=== PATIENT | male | born 1960 | race Caucasian/White ===

== ENCOUNTER 2017-12-10 09:35 | Emergency (ER) | payer OTHER ==
[~2017-12-10] VITALS: Ht 175.3 cm; Wt 138.3 kg
[~2017-12-10 09:35] MED LIST: ASPIR 8181 MG PO; BACTRIM DS TAB1 EACH PO; COUMADIN 2 MG TA2 M1 PO; DULCOLAX5 MG PO; ENOXAPARIN120 MG/0.1 SUBQ; FERREX 150 PLU1 EAC1 PO; IRON325 PO; LEVAQUIN 500 M500 M7 PO; LISINOPRIL-HCT1 EACH PO; MIRALAX17 GM PO; NORCO 5-325 TA1 EACH PO; ZESTORETIC 10-1 EACH PO
[2017-12-10] MEDS ORDERED: ANTIVERT25 MG PO (09:43)
[2017-12-10] MEDS ORDERED: COUMADIN 3 MG TA3 M1 PO ×2 (09:43)
[2017-12-10] MEDS ORDERED: COZAAR 25 MG TA25 M1 PO (09:43)
[2017-12-10 10:41] LABS: HEMATOCRIT 43.5 % (42.0-52.0); HEMOGLOBIN 14.1 gm/dL (14.0-18.0); MCH 28.1 pg (26.0-34.0); MCHC 32.6 g/dL (28.0-37.0); MCV 86.3 fL (80.0-100.0); MPV 7.5 fl. (7.2-11.1); NUCLEATED RBCS 0 /100WBC; PLATELET COUNT* 208 thou/uL (150-400); RBC 5.03 mil/uL (4.50-6.00); RDW-CV 15.7 % (10.5-14.5); WBC 17.8 thou/uL (4.0-11.0)
[2017-12-10 10:49] LABS: CALCIUM 9.1 mg/dL (8.5-10.1); CREATININE 1.1 mg/dL (0.6-1.3); INR 1.5; POTASSIUM 3.6 mmol/L (3.5-5.1); PROTIME 14.5 Seconds (9.20-11.50)
[2017-12-10] MEDS ORDERED: KEFLEX500 M1 PO (11:34)
[2017-12-10 11:54] VITALS: BP 155/82
[2017-12-10 12:50] LABS: ABSOLUTE LYMPHOCYTES 1.2 thou/uL (0.8-5.3); ABSOLUTE MONOCYTES 0.9 thou/uL (0.0-1.2); ABSOLUTE NEUTROPHILS 15.7 thou/uL (1.6-8.1); PLATELET ESTIMATE ADEQUATE
[2017-12-10 12:51] LABS: ANISOCYTOSIS 1+; POIKILOCYTOSIS 1+
== END 2017-12-10 11:55 | disposition home or self-care (01) ==
LOC: M.ERS 09:35
PROVIDERS: Emergency Medicine Emergency Medical Services
DX: L03.116 Cellulitis of left lower limb (principal); R50.9 Fever, unspecified; I10 Essential (primary) hypertension; J45.909 Unspecified asthma, uncomplicated

== ENCOUNTER 2017-12-12 07:03 | Inpatient (IN) | payer OTHER ==
[~2017-12-12] VITALS: Ht 175.3 cm; Wt 138.3 kg
[~2017-12-12 07:03] MED LIST changes: +ANTIVERT25 MG PO; +COUMADIN 3 MG TA3 M1 PO; +COZAAR 25 MG TA25 M1 PO; +KEFLEX500 M1 PO
[2017-12-12 07:12] VITALS: BP 136/100
[2017-12-12 07:39] LABS: ABSOLUTE LYMPHOCYTES 1.3 thou/uL (0.8-5.3); ABSOLUTE MONOCYTES 1.1 thou/uL (0.0-1.2); ABSOLUTE NEUTROPHILS 9.6 thou/uL (1.6-8.1); BASOPHILS 0.1 %; EOSINOPHILS 0.4 %; HEMATOCRIT 39.1 % (42.0-52.0); LYMPHOCYTES 10.6 %; MCH 28.3 pg (26.0-34.0); MCHC 33.2 g/dL (28.0-37.0); MCV 85.3 fL (80.0-100.0); MPV 7.7 fl. (7.2-11.1); NUCLEATED RBCS 0 /100WBC; PLATELET COUNT* 255 thou/uL (150-400); POLYS 79.9 %; RBC 4.59 mil/uL (4.50-6.00); RDW-CV 15.6 % (10.5-14.5)
[2017-12-12 07:48] LABS: POTASSIUM 3.6 mmol/L (3.5-5.1)
[2017-12-12 07:49] LABS: PROTIME 23.2 Seconds (9.20-11.50)
[2017-12-12 07:51] LABS: INR 2.4
[2017-12-12 07:52] LABS: ALBUMIN 2.9 g/dL (3.4-5.0); TOTAL BILIRUBIN 0.5 mg/dL (<0.1-1.0); TOTAL PROTEIN 7.9 g/dL (6.4-8.2)
[2017-12-12 08:44] VITALS: BP 130/76
[2017-12-12 08:46] LABS: URINE BILIRUBIN NEGATIVE (Negative); URINE BLOOD NEGATIVE (Negative); URINE CLARITY CLEAR; URINE COLOR YELLOW; URINE GLUCOSE-RANDOM NEGATIVE (Negative); URINE KETONES NEGATIVE (Negative); URINE LEUKOCYTES-REFLEX NEGATIVE (Negative); URINE NITRITE-REFLEX NEGATIVE (Negative); URINE PROTEIN 1+ (Negative)
[2017-12-12 16:06] VITALS: BP 121/71
--- NOTE | 2017-12-12 18:43 | NUR ---
ADMITTED TO 118 THIS AM, COMPLIANT WITH MEDS AND CARES, NO DISTRESS NOTED, LLE WITH DIFFUSE ERYTHEMA/EDEMA FROM KNEE TO ANKLE, TENDER TO PALPATION, A/O, PAIN MANAGED WELL WITH MEDICATION, FAMILY AT BEDSIDE, CARE PLAN REVIEWED, DENIES QUESTIONS AT THIS TIME, CALL LIGHT IN REACH.
[2017-12-13] VITALS: BP 105/74
[2017-12-13 04:04] LABS: HEMATOCRIT 37.3 % (42.0-52.0); HEMOGLOBIN 12.1 gm/dL (14.0-18.0); MCH 28.4 pg (26.0-34.0); MCHC 32.4 g/dL (28.0-37.0); MCV 87.5 fL (80.0-100.0); RBC 4.26 mil/uL (4.50-6.00); RDW-CV 15.7 % (10.5-14.5); WBC 9.9 thou/uL (4.0-11.0)
[2017-12-13 04:07] LABS: INR 2.7; PROTIME 26.2 Seconds (9.20-11.50)
[2017-12-13 04:10] LABS: CALCIUM 8.2 mg/dL (8.5-10.1); MAGNESIUM 2.2 mg/dL (1.8-2.4); POTASSIUM 3.8 mmol/L (3.5-5.1)
--- NOTE | 2017-12-13 05:23 | NUR ---
PT RECEIVING IV PAIN MED OVERNIGHT WITH GOOD RESULT, HAS BEEN ABLE TO SLEEP FAIRLY WELL OVERNIGHT. LLE ELEVATED ON PILLOWS. LAC SL, ABX GIVEN ORDERED. USING URINAL TO VOID WITHOUT DIFFICULTY. AM LAB DRAWN. LLE REMAINS RED, EDEMATOUS, WARM-PHOTOS TAKEN AND PLACED ON CHART. ABLE TO USE CALL LITE AND MAKE NEEDS KNOWN.
[2017-12-13 08:00] VITALS: BP 118/66
[2017-12-13 16:00] VITALS: BP 122/70
[2017-12-14 00:05] VITALS: BP 106/39
[2017-12-14 04:30] LABS: PROTIME 29.1 Seconds (9.20-11.50)
--- NOTE | 2017-12-14 05:16 | NUR ---
PT SLEPT ON AND OFF OVERNIGHT. PAIN IN LLE IMPROVED FROM LAST NIGHT, PT ABLE TO MOVE IT MUCH BETTER. PO PAIN MED GIVEN X2 THIS SHIFT WITH GOOD RELIEF. LAC SL, ABX GIVEN ORDERED. VOIDING PER URINAL. PT MOVES INDEP IN BED. AM LABS DRAWN, TO HAVE VANC TROUGH THIS AFTERNOON. ABLE TO USE CALL LITE AND MAKE NEEDS KNOWN.
[2017-12-14 07:45] VITALS: BP 118/68
[2017-12-14 16:46] VITALS: BP 105/54
--- NOTE | 2017-12-14 17:01 | NUR ---
PT.ALERT AND ORIENTED. LIVES WITH . BOTH WORK OUTSIDE OF THE HOME. HE IS NORMALLY INDEPENDENT WITH EVERYTHING. NO USE OF DME. HE WILL HAVE [employer] PAPERS FOR TO SIGN. HE WILL EITHER FAX TO CM OR HAVE BRING THEM BY. HE WILL NOT HAVE ANY DISCHARGE NEEDS.
--- NOTE | 2017-12-14 18:15 | NUR ---
ALERT AND ORIENTED X4. UP AD MARYAN IN ROOM. IV IS PATENT AND INFUSING ANTIBIOTIC AT THIS TIME. PAIN BEING MANAGED WITH PO PAIN MEDICATION. DENIES NAUSEA. LLE ELEVATED ON PILLOW THROUGHOUT SHIFT. TOLERATING DIET. VSS ON ROOM AIR. HOURLY ROUNDS HAVE BEEN MAINTAINED THROUGHOUT SHIFT. CALL LIGHT IS WITHIN REACH. NURSING WILL CONTINUE TO MONITOR.
[2017-12-14 20:00] VITALS: BP 107/48
[2017-12-15 05:10] LABS: INR 3.3; PROTIME 31.4 Seconds (9.20-11.50)
--- NOTE | 2017-12-15 07:09 | NUR ---
PATIENT REMAINS ALERT AND ORIENTED X4 THROUGHOUT SHIFT. VITAL SIGNS STABLE ON ROOM AIR. IV PATENT IN THE LEFT AC SALINE LOCKED. DENIES PAIN OR NAUSEA. REPOSITIONING SELF IN BED. TRANSFERS AD MARYAN TO THE RESTOOM. USING URINALS AT TIMES. MEDICATIONS GIVEN PER ORDERS. RESTING COMFORTABLY THROUGHOUT NIGHT. TOLERATING DIET. HOURLY ROUNDING COMPLETE. CALL LIGHT WITHIN REACH. NURSING WILL CONTINUE TO MONITOR.
[2017-12-15 08:00] VITALS: BP 139/55
--- NOTE | 2017-12-15 09:56 | NUR ---
RN REVIEWED AND AGREES WITH STUDENTS CHARTING.
[2017-12-15 10:20] VITALS: BP 139/55
[2017-12-15] MEDS ORDERED: NORCO 5-325 TA1 EACH PO (10:28)
[2017-12-15] MEDS ORDERED: MINOCIN100 MG PO (10:34)
[2017-12-15 12:57] VITALS: BP 139/55
--- NOTE | 2017-12-15 14:08 | NUR ---
Nutrition: Pt admitted for sepsis 2/2 cellulitis. Wt hx: 275# in 2016, now 305#. PMHx: morbid OBE, LLE venous insuffciency. +BM yday. Labs: alb 2.9, BG 115. RX: ABX, warfarin. Tolerating Regular diet. Pt assessed for BMI >40. Protein stores are low. Continue encouraging good HBV protein at meal times. Consider Mild risk at this time. Will follow up per protocol.
--- NOTE | 2017-12-15 15:16 | NUR ---
PATIENT LEFT UNIT AT 1200. ALERT AND ORIENTED X4. UP AD MARYAN IN ROOM. IV DC'D. PAIN MANAGED WITH PO PAIN MEDICATION. DENIES NAUSEA. TOLERATING DIET. LEFT LEG ELEVATED ON PILLOW THROUGHOUT SHIFT. ROLANDO HOSE IN PLACE ON LEFT LEG. ALL PERSONAL ITEMS LEFT WITH PATIENT. DISCHARGE INSTRUCTIONS, PRESCRIPTIONS, AND NEW MEDICATION INFORMATION SENT WITH PATIENT. VSS ON ROOM AIR. HOURLY ROUNDS HAVE BEEN MAINTAINED THROUGHOUT SHIFT. LEFT WITH FRIEND VIA CAR.
== END 2017-12-15 12:00 | disposition home or self-care (01) | DRG 872 ==
LOC: M.ERS 07:03 → M.TBA-ER 08:15 → M.ORTHSURG 08:15
PROVIDERS: Emergency Medicine Emergency Medical Services; ADMIT Internal Medicine
DX: A41.9 Sepsis, unspecified organism (principal); L03.116 Cellulitis of left lower limb; Z68.42 Body mass index [BMI] 45.0-49.9, adult; D68.69 Other thrombophilia; I87.2 Venous insufficiency (chronic) (peripheral); I10 Essential (primary) hypertension; J45.909 Unspecified asthma, uncomplicated; E66.01 Morbid (severe) obesity due to excess calories; Z87.891 Personal history of nicotine dependence; Z95.2 Presence of prosthetic heart valve; Z79.01 Long term (current) use of anticoagulants; Z79.899 Other long term (current) drug therapy

== ENCOUNTER → 2018-02-24 | Outpatient (CLI) | payer OTHER ==
[~2018-02-24] MED LIST changes: +MINOCIN100 MG PO
--- NOTE | 2018-02-24 16:02 | 2DMMODE ---
[place] [address] 2 D/M-MODE ECHOCARDIOGRAM Name: CHAD SCHMID Room: [facility]#: [id number] Admission: 02/24/18 Attend Phys: Harvey Elizabeth, Discharge: Date of : 62 Date of Service: 02/24/18 1602 Report #: [id number] THIS REPORT FOR: //name// APPROVED REPORT Study performed: 02/24/2018 14:23:45 EXAM: Comprehensive 2D, Doppler, and color-flow Echocardiogram Patient Location: Out-Patient Status: routine BSA: 2.48 HR: 75 bpm BP: 136/80 mmHg Other Information Study Quality: Fair Indications Aortic Valve Disease Aortic valve replacement 2D Dimensions IVSd: 12.35 (7-11mm) LVOT Diam: 20.61 (18-24mm) LVDd: 47.10 mm PWd: 11.48 (7-11mm) Ascending Ao: 35.04 (22-36mm) LVDs: 20.23 (25-40mm) Aortic Root: 35.42 mm Volumes Left Atrial Volume (Systole) LA ESV Index: 13.80 mL/m2 Aortic Valve AoV Peak Luís.: 1.80 m/s AO Peak Gr.: 12.91 mmHg LVOT Max P.62 mmHg AO Mean Gr.: 6.95 mmHg LVOT Mean P.43 mmHg LVOT Max V: 0.81 m/s AO V2 VTI: 36.45 cm LVOT Mean V: 0.56 m/s ROOSEVELT (VTI): 1.70 cm2 LVOT V1 VTI: 18.61 cm Mitral Valve E/A Ratio: 0.97 MV Decel. Time: 234.13 ms MV E Max Luís.: 0.91 m/[place] [address] 2 D/M-MODE ECHOCARDIOGRAM Name: CHAD SCHMID Room: [facility]#: [id number] Admission: 02/24/18 Attend Phys: Harvey Elizabeth, Discharge: Date of : 62 Date of Service: 02/24/18 1602 Report #: [id number] PHT: 67.90 ms MVA (PHT): 3.24 cm2 TDI E/Lateral E': 11.38 E/Medial E': 7.58 Medial E' Luís.: 0.12 m/s Lateral E' Luís.: 0.08 m/s Pulmonary Valve PV Peak Luís.: 1.10 m/s PV Peak Gr.: 4.84 mmHg Left Ventricle The left ventricle is normal size. There is normal LV segmental wall motion. There is normal left ventricular wall thickness. Left ventricular systolic function is normal. The left ventricular ejection fraction is within the normal range. LVEF is 55-60%. The left ventricular diastolic function is normal. Right Ventricle The right ventricle is normal size. The right ventricular systolic function is normal. Atria The left atrium size is normal. The right atrium size is normal. Aortic Valve Mild aortic valve sclerosis. Mechanical aortic valve is present. No aortic regurgitation is present. There is no aortic valvular stenosis. Mitral Valve The mitral valve is normal in structure. There is no mitral valve regurgitation noted. No evidence of mitral valve stenosis. Tricuspid Valve The tricuspid valve is normal in structure. There is no tricuspid valve regurgitation noted. Pulmonic Valve The pulmonary valve is normal in structure. There is no pulmonic valvular regurgitation. Great Vessels The aortic root is normal in size. IVC is normal in size and collapses >50% [place] [address] 2 D/M-MODE ECHOCARDIOGRAM Name: CHAD SCHMID Room: [facility]#: [id number] Admission: 02/24/18 Attend Phys: Harvey Elizabeth, Discharge: Date of : 62 Date of Service: 02/24/18 1602 Report #: [id number] Pericardium There is no pericardial effusion. <Conclusion> The left ventricle is normal size. There is normal left ventricular wall thickness. Left ventricular systolic function is normal. The left ventricular ejection fraction is within the normal range. LVEF is 55-60%. The left ventricular diastolic function is normal. The right ventricle is normal size. The left atrium size is normal. Mild aortic valve sclerosis. No aortic regurgitation is present. There is no aortic valvular stenosis. The mitral valve is normal in structure. The tricuspid valve is normal in structure. IVC is normal in size and collapses >50% with inspiration. There is no pericardial effusion. There is normal LV segmental wall motion. Mechanical aortic valve is present. <ELECTRONICALLY SIGNED> By: Robert Isidro MD, FACC 02/24/18 1602 160 160 Robert Isidro MD, FACC /INF
== END ==
LOC: M.CRD 14:13
DX: I35.8 Other nonrheumatic aortic valve disorders (principal); Z95.2 Presence of prosthetic heart valve

== ENCOUNTER → 2018-05-10 | Outpatient (CLI) | payer OTHER ==
[~2018-05-10] MED LIST changes: +ZOFRAN ODT4 MG DISSOLVE
== END ==
LOC: M.WC 00:59
DX: I87.312 Chronic venous hypertension (idiopathic) with ulcer of left lower extremity (principal); L97.222 Non-pressure chronic ulcer of left calf with fat layer exposed; I25.10 Atherosclerotic heart disease of native coronary artery without angina pectoris; I10 Essential (primary) hypertension; J45.909 Unspecified asthma, uncomplicated; Z87.891 Personal history of nicotine dependence

== ENCOUNTER 2018-05-12 12:47 | Inpatient (IN) | payer OTHER ==
[~2018-05-12] VITALS: Ht 175.3 cm; Wt 143.8 kg
[~2018-05-12 12:47] MED LIST changes: -ZOFRAN ODT4 MG DISSOLVE
[2018-05-12 12:53] VITALS: BP 105/69
[2018-05-12] MEDS ORDERED: ZOFRAN ODT4 MG DISSOLVE (12:59)
[2018-05-12] MEDS ORDERED: KEFLEX500 M1 PO (13:00)
[2018-05-12 13:30] LABS: HEMATOCRIT 37.8 % (42.0-52.0); HEMOGLOBIN 12.5 gm/dL (14.0-18.0); MCH 27.9 pg (26.0-34.0); MCHC 33.1 g/dL (28.0-37.0); MCV 84.3 fL (80.0-100.0); MPV 7.4 fl. (7.2-11.1); NUCLEATED RBCS 0 /100WBC; PLATELET COUNT* 224 thou/uL (150-400); RBC 4.48 mil/uL (4.50-6.00); RDW-CV 15.5 % (10.5-14.5); WBC 22.9 thou/uL (4.0-11.0)
[2018-05-12 13:40] LABS: APTT 36.5 Seconds (25.0-31.3); INR 1.6; PROTIME 16.4 Seconds (9.20-11.50)
[2018-05-12 13:46] LABS: ABSOLUTE LYMPHOCYTES 1.8 thou/uL (0.8-5.3); ABSOLUTE MONOCYTES 0.7 thou/uL (0.0-1.2); ABSOLUTE NEUTROPHILS 20.4 thou/uL (1.6-8.1); ATYPICAL LYMPHS 2 %
[2018-05-12 13:47] LABS: PLATELET ESTIMATE ADEQUATE; POLYCHROMASIA 1+
[2018-05-12 14:13] LABS: CALCIUM 8.7 mg/dL (8.5-10.1); CREATININE 1.3 mg/dL (0.6-1.3); POTASSIUM 4.3 mmol/L (3.5-5.1)
[2018-05-12 14:18] LABS: ALBUMIN 3.2 g/dL (3.4-5.0); TOTAL BILIRUBIN 0.8 mg/dL (<0.1-1.0); TOTAL PROTEIN 7.1 g/dL (6.4-8.2)
[2018-05-12 14:34] LABS: ESR (SEDRATE) 48 mm/hr (0-20)
[2018-05-12 15:21] VITALS: BP 139/70
[2018-05-12 15:30] VITALS: BP 128/76
--- NOTE | 2018-05-12 18:36 | NUR ---
PATIENT ARRIVED FROM ER THIS AFTERNOON. PATIENT SETTLED TO ROOM. HISTORY, ASSESSMENT AND VITALS COMPLETED AND DOCUMENTED. PATIENT HAS CELLULITIS TO LEFT LOWER EXTREMITY, LEG IS BRIGHT RED AND HOT. PATIENT HAS COMPLAINTS OF PAIN TO LLE, TREATED ADEQUATELY WITH MEDICATION. PATIENT HAS IV ANTIBIOTIC INFUSING ORDERED. PATIENT IS TOLERATING DIET. PATIENT DENIES ANY NEEDS AT THIS TIME. CALL LIGHT WITHIN REACH. WILL CONTINUE TO MONITOR.
[2018-05-13 00:34] VITALS: BP 116/70
[2018-05-13 03:55] VITALS: BP 110/68
[2018-05-13 04:10] LABS: ABSOLUTE LYMPHOCYTES 0.9 thou/uL (0.8-5.3); ABSOLUTE MONOCYTES 1.1 thou/uL (0.0-1.2); ABSOLUTE NEUTROPHILS 13.5 thou/uL (1.6-8.1); BASOPHILS 0.1 %; HEMATOCRIT 36.1 % (42.0-52.0); HEMOGLOBIN 11.7 gm/dL (14.0-18.0); MCH 27.7 pg (26.0-34.0); MCHC 32.4 g/dL (28.0-37.0); MCV 85.5 fL (80.0-100.0); MONOCYTES 7.3 %; MPV 7.4 fl. (7.2-11.1); NUCLEATED RBCS 0 /100WBC; PLATELET COUNT* 200 thou/uL (150-400); POLYS 86.6 %; RBC 4.22 mil/uL (4.50-6.00); RDW-CV 15.5 % (10.5-14.5); WBC 15.6 thou/uL (4.0-11.0)
[2018-05-13 04:17] LABS: INR 1.8; PROTIME 18.2 Seconds (9.20-11.50)
[2018-05-13 04:31] LABS: CALCIUM 8.2 mg/dL (8.5-10.1); CREATININE 1.1 mg/dL (0.6-1.3); POTASSIUM 4.1 mmol/L (3.5-5.1)
--- NOTE | 2018-05-13 05:08 | NUR ---
PT SLEPT FAIRLY WELL OVERNIGHT. DENIED NEED FOR PAIN MED THIS SHIFT. L LEFT ELEVATED ON PILLOW, REMAINS RED AND WARM. USING URINAL TO VOID. RHAND IVF INFUSING PER PUMP, ABX GIVEN ORDERED. HAS BEEN NPO SINCE MIDNIGHT ORDERED. AM LABS DRAWN. ABLE TO USE CALL LITE AND MAKE NEEDS KNOWN.
[2018-05-13 07:55] VITALS: BP 102/62
--- NOTE | 2018-05-13 12:15 | CON ---
[address] [address] CONSULTATION Name: CHAD SCHMID Room: [address] IN .R.#: [id number] Admission: 05/12/18 Attend Phys: Phoenix Emery MD Discharge: Date of : 62 Report #: [id number] THIS REPORT FOR: //name// CC: Phoenix Clemente Harvey Elizabeth DATE OF SERVICE: 05/12/2018 INFECTIOUS DISEASE CONSULTATION ATTENDING PHYSICIAN: Phoenix Emery M.D. REASON FOR EVALUATION: Left lower extremity inflammatory eruption, likely multifactorial with a component of skin and soft tissue infection/cellulitis. HISTORY OF PRESENT ILLNESS: Chart reviewed, the patient examined. This is a 57-year-old with known history of aortic stenosis. He is post aortic valve replacement. He has had issues with venous stasis insufficiency wounds involving the left lower extremity, in particular, the mid portion of the lateral leg, had recently healed. He is only to have it open and drain. He was evaluated by the [facility] in the last 48 hours with debridement. He noted increasing pain associated with associated inflammatory signs that were progressing as well. He has had some fevers, chills, sweats as well as anorexia and poor p.o. intake. He denies significant pulmonary or gastrointestinal-related complaints. He was referred for evaluation and possible admission after CBC showed an elevated white blood cell count. He is empirically started on ceftriaxone and vancomycin. He is seen in the Emergency Room. Spouse is present. He is lethargic, although he does not appear to be encephalopathic. ALLERGIES: None known. CURRENT MEDICATIONS: Include warfarin, losartan, pantoprazole, vancomycin, ceftriaxone, hydrocodone and ondansetron as needed. PAST MEDICAL HISTORY: As noted above, aortic stenosis with mechanical valve replacement in 2016, history of hypertension and asthma. SOCIAL HISTORY: Former smoker, occasional marijuana and occasional ethanol. FAMILY HISTORY: Noncontributory. REVIEW OF SYSTEMS: Otherwise, unremarkable 10-point review of systems, with the exception of what is noted in the [place] [address] CONSULTATION Name: CHAD SCHMID Room: [address]#: [id number] Admission: 05/12/18 Attend Phys: Phoenix Emery MD Discharge: Date of : 62 Report #: [id number] PHYSICAL EXAMINATION: GENERAL: He appears ill, not overtly toxic. He is lethargic. He is in moderate distress. VITAL SIGNS: Temperature 99.4, pulse 103, respirations 18 and blood pressure 139/70. SKIN: Warm. HEENT: Otherwise, unremarkable. Extraocular muscles intact. Oropharynx, dry mucous membranes, no lesions. NECK: Supple. LUNGS: Diminished breath sounds, otherwise clear. HEART: Regular. Borderline tachycardic. I do not a appreciate murmur. There is aortic valve click. ABDOMEN: Mildly distended, soft. There is no apparent tenderness. No peritoneal signs. EXTREMITIES: Lower extremities, faint changes suggestive of venous stasis insufficiency with dermatitis. There is a small ulceration over the mid portion of the lateral leg. There is no overt purulence. He does have distal pulses. He is quite exquisitely tender to palpation, especially distally in the foot and ankle area. GENITOURINARY: Deferred. RECTAL: Deferred. LABORATORY DATA: CBC: White count of 22.9, H and H 12.5 and 37.8 and platelets of 224,000. Sed rate of 48. Electrolytes: Sodium 130, potassium 4.3, chloride 97, bicarbonate is 23, anion gap of 10 and BUN and creatinine 17 and 1.3. LFTs unremarkable. Albumin of 3.2. Total protein 7.1. Estimated GFR 57. Lactic acid 1.1. PT of 16.4, INR of 1.6. ASSESSMENT AND PLAN: Inflammatory eruption, left lower extremity, likely multifactorial. I think there is a component of cellulitis, unlikely originated from wound, suspect staph or strep etiology. Continue the parenteral therapy at this point. He appears fairly ill. I had a lengthy discussion with the spouse primarily. We will see how he does clinically. Try to elevate and consider reintroducing compression here in the next 2-3 days. <ELECTRONICALLY SIGNED> By: Olvin Quan MD 05/13/18 1215 1527 [id number] Quan MD /nt
--- NOTE | 2018-05-13 15:50 | NUR ---
SW met with pt to complete initial assessment, introduce self, and SW role. Pt alert, oriented. Pt lives at home with his . Pt was independent with mobility and ADLs. Pt explained that he had been going to wound care center and following directions and he plans to "stay here until this is taken care of". SW to continue to follow to assist with safe dc planning.
[2018-05-13 16:00] VITALS: BP 114/67
--- NOTE | 2018-05-13 18:04 | NUR ---
PATIENT RESTING IN BED. PATIENT IS UP STANDBY ASSIST IN ROOM. PATIENT HAS COMPLAINTS OF PAIN TO LLE, TREATED AEQUATELY WITH MEDICATION. LLE IS RED AND EDEMATOUS. MARYLU IS ELEVATED ON PILLOWS. PATIENT HAS EXCELLENT APPETITE. PATIENT DENIES ANY NEEDS AT THIS TIME. CALL LIGHT WITHIN REACH. WILL CONTINUE TO MONITOR.
[2018-05-13 20:00] VITALS: BP 144/72
--- NOTE | 2018-05-14 01:11 | NUR ---
PT ALERT ORIENTED. ON BED REST. L LEG SWOLLEN RED UP ON PILLOWS X2. HYDROCODONE FOR PAIN.
[2018-05-14 04:02] LABS: INR 2.2; PROTIME 22.3 Seconds (9.20-11.50)
[2018-05-14 07:55] VITALS: BP 114/52
[2018-05-14 10:16] VITALS: BP 144/72
[2018-05-14 13:07] LABS: ABSOLUTE EOSINOPHILS 0.1 thou/uL (0.0-0.7); ABSOLUTE LYMPHOCYTES 1.3 thou/uL (0.8-5.3); ABSOLUTE MONOCYTES 0.7 thou/uL (0.0-1.2); ABSOLUTE NEUTROPHILS 4.9 thou/uL (1.6-8.1); BASOPHILS 0.3 %; HEMATOCRIT 36.7 % (42.0-52.0); HEMOGLOBIN 12.1 gm/dL (14.0-18.0); LYMPHOCYTES 18.7 %; MCHC 32.9 g/dL (28.0-37.0); MCV 85.1 fL (80.0-100.0); MONOCYTES 9.8 %; MPV 7.3 fl. (7.2-11.1); NUCLEATED RBCS 0 /100WBC; PLATELET COUNT* 217 thou/uL (150-400); POLYS 70.2 %; RBC 4.31 mil/uL (4.50-6.00); RDW-CV 15.7 % (10.5-14.5)
[2018-05-14 13:20] LABS: ALBUMIN 2.6 g/dL (3.4-5.0); CALCIUM 8.9 mg/dL (8.5-10.1); CREATININE 1.1 mg/dL (0.6-1.3); TOTAL BILIRUBIN 0.3 mg/dL (<0.1-1.0); TOTAL PROTEIN 7.2 g/dL (6.4-8.2)
[2018-05-14 15:52] VITALS: BP 121/72
--- NOTE | 2018-05-14 16:48 | NUR ---
PATIENT RESTING IN BED. PATIENT IS UP STANDBY ASSIST TO BATHROOM. LLE IS ELEVATED AND LOTION APPLIED. PATIENT HAS COMPLAINTS OF PAIN, TREATED ADEQUATELY WITH MEDICATION. PATIENT HAS GOOD APPETITE. PATIENT HAS IV ANTIBIOTICS INFUSED OREDERED. PATIENT DENIES ANY NEEDS AT THIS TIME. CALL LIGHT WITHIN REACH. WILL CONTINUE TO MONITOR.
--- NOTE | 2018-05-14 18:03 | NUR ---
ASSUMED CARE OF PATIENT FROM Aleks KAMINSKI RN. REMI WITH PREVIOUS ASSESSMENT. UP IN RECLINER EATING DINNER. CALL LIGHT WITHIN REACH. WILL CONTINUE WITH PLAN OF CARE.
[2018-05-14 20:00] VITALS: BP 127/63
[2018-05-15 05:01] LABS: ABSOLUTE EOSINOPHILS 0.1 thou/uL (0.0-0.7); ABSOLUTE LYMPHOCYTES 1.3 thou/uL (0.8-5.3); ABSOLUTE MONOCYTES 0.6 thou/uL (0.0-1.2); ABSOLUTE NEUTROPHILS 4.2 thou/uL (1.6-8.1); BASOPHILS 0.2 %; EOSINOPHILS 1.5 %; HEMATOCRIT 37.1 % (42.0-52.0); HEMOGLOBIN 12.3 gm/dL (14.0-18.0); LYMPHOCYTES 21.4 %; MCH 28.4 pg (26.0-34.0); MCV 85.8 fL (80.0-100.0); MONOCYTES 9.1 %; MPV 7.8 fl. (7.2-11.1); NUCLEATED RBCS 0 /100WBC; PLATELET COUNT* 219 thou/uL (150-400); POLYS 67.8 %; RBC 4.32 mil/uL (4.50-6.00); RDW-CV 15.7 % (10.5-14.5); WBC 6.1 thou/uL (4.0-11.0)
[2018-05-15 05:33] LABS: PREALBUMIN 14.9 mg/dL (18.0-35.7)
[2018-05-15 05:34] LABS: INR 2.3; PROTIME 23.9 Seconds (9.20-11.50)
[2018-05-15 05:40] LABS: ALBUMIN 2.6 g/dL (3.4-5.0); CALCIUM 8.7 mg/dL (8.5-10.1); CREATININE 0.9 mg/dL (0.6-1.3); TOTAL BILIRUBIN 0.4 mg/dL (<0.1-1.0); TOTAL PROTEIN 7.1 g/dL (6.4-8.2)
--- NOTE | 2018-05-15 05:48 | NUR ---
PT SLEPT IN RECLINER MOST OF SHIFT. ASSESSMENT DOCUMENTED. MEDS GIVEN PER E-MAR. NEW IV STARTED. PAIN MEDS GIVEN PER E-MAR WITH RELIEF. MEPLEX ON LEFT LEG INTACT. REDNESS ON LEFT LOWER LEG. LEG ELEVATED ON PILLOWS THORUGH NIGHT. WILL CONTINUE WITH PLAN OF CARE.
[2018-05-15 07:45] VITALS: BP 115/65
[2018-05-15 16:00] VITALS: BP 115/70
--- NOTE | 2018-05-15 17:26 | NUR ---
ASSESSMENT COMPLETE. PT ALERT AND ORIENTED X4. PRN PAIN MEDICATION GIVEN NEEDED. IV VANC GIVEN ORDERED. TUBIGRIP APPLIED TO LEFT LEG PER ORDER FROM DR INTERIANO. LEFT LEG ELEVATED. PT USES URINAL NEEDED. UP AD MARYAN WITH STEADY GAIT. SEE ASSESSMENT AND VITALS FOR OTHER DETAILS. CALL LIGHT WITHIN REACH, WILL CONTINUE PLAN OF CARE
[2018-05-15 21:55] VITALS: BP 118/90
[2018-05-16 04:32] LABS: INR 2.7
--- NOTE | 2018-05-16 05:39 | NUR ---
ALERT AND ORIENTED X4. UP AD MARYAN. CONTINUES ON IV ANTIBIODICS WITHOUT ADVERSE REACTIONS. LEFT LEG REMAINS DARK RED IN COLOR. CALL LIGHT WITHIN REACH.
[2018-05-16 08:22] VITALS: BP 142/88
[2018-05-16 11:26] VITALS: BP 144/72
--- NOTE | 2018-05-16 15:07 | NUR ---
PT PREPARING FOR DISCHARGE, SPOUSE PRESENT. PT AND SPOUSE INDICATE NO PT SERVICES NEEDED AT THIS TIME. PT AND SPOUSE VOICE NO CONCERNS W/ DISCHARGE TO HOME.
== END 2018-05-16 13:15 | disposition home or self-care (01) | DRG 871 ==
LOC: M.ERS 12:47 → M.TBA-ER 13:31 → M.3W 13:31
PROVIDERS: Nurse Practitioner Family; ADMIT Internal Medicine
DX: A41.9 Sepsis, unspecified organism (principal); G93.41 Metabolic encephalopathy; L03.116 Cellulitis of left lower limb; Z68.42 Body mass index [BMI] 45.0-49.9, adult; E87.1 Hypo-osmolality and hyponatremia; I38 Endocarditis, valve unspecified; I10 Essential (primary) hypertension; J45.909 Unspecified asthma, uncomplicated; E66.01 Morbid (severe) obesity due to excess calories; Z95.2 Presence of prosthetic heart valve; Z87.891 Personal history of nicotine dependence; Z79.01 Long term (current) use of anticoagulants; Z79.899 Other long term (current) drug therapy; Z23 Encounter for immunization

== ENCOUNTER → 2018-05-31 | Outpatient (CLI) | payer OTHER ==
[~2018-05-31] MED LIST changes: +ZOFRAN ODT4 MG DISSOLVE
== END ==
LOC: M.ULTRA 08:45
DX: M79.605 Pain in left leg (principal); M79.89 Other specified soft tissue disorders

== ENCOUNTER → 2019-08-03 | Outpatient (CLI) | payer OTHER | LOC: M.MRI 13:08 | DX: M17.11 Unilateral primary osteoarthritis, right knee (principal); M65.861 Other synovitis and tenosynovitis, right lower leg; M25.461 Effusion, right knee ==

== ENCOUNTER → 2020-06-20 | Outpatient (CLI) | payer OTHER ==
--- NOTE | 2020-06-20 16:30 | 2DMMODE ---
[place] [address] 2 D/M-MODE ECHOCARDIOGRAM Name: SHARMAINECHAD ANGLE Room: [facility]#: [id number] Admission: 06/20/20 Attend Phys: Harvey Elizabeth, Discharge: Date of : 62 Date of Service: 06/20/20 1629 Report #: [id number] THIS REPORT FOR: cc: Nerissa Clemente Maggie M. DO Holkins, John M. MD [facility] ~ APPROVED REPORT Study performed: 06/20/2020 13:55:32 EXAM: Comprehensive 2D, Doppler, and color-flow Echocardiogram Patient Location: Out-Patient BSA: 2.56 HR: 72 bpm BP: 122/80 mmHg Other Information Study Quality: Fair Indications Aortic Valve Disease 2D Dimensions IVSd: 11.33 (7-11mm) LVOT Diam: 21.76 (18-24mm) LVDd: 49.90 mm PWd: 10.96 (7-11mm) Ascending Ao: 34.70 (22-36mm) LVDs: 34.77 (25-40mm) Aortic Root: 32.58 mm Volumes Left Atrial Volume (Systole) LA ESV Index: 14.40 mL/m2 Aortic Valve AoV Peak Luís.: 1.98 m/s AO Peak Gr.: 15.75 mmHg LVOT Max P.50 mmHg AO Mean Gr.: 8.98 mmHg LVOT Mean P.24 mmHg LVOT Max V: 1.28 m/s AO V2 VTI: 39.61 cm LVOT Mean V: 0.83 m/s ROOSEVELT (VTI): 2.58 cm2 LVOT V1 VTI: 27.47 cm Mitral Valve E/A Ratio: 0.79 [place] [address] 2 D/M-MODE ECHOCARDIOGRAM Name: CHAD SCHMID Room: [facility]#: [id number] Admission: 06/20/20 Attend Phys: Harvey Elizabeth, Discharge: Date of : 62 Date of Service: 06/20/20 1629 Report #: [id number] MV Decel. Time: 337.73 ms MV E Max Luís.: 0.77 m/s MV PHT: 97.94 ms MVA (PHT): 2.25 cm2 TDI E/Lateral E': 8.56 E/Medial E': 9.63 Medial E' Luís.: 0.08 m/s Lateral E' Luís.: 0.09 m/s Pulmonary Valve PV Peak Luís.: 1.20 m/s PV Peak Gr.: 5.77 mmHg Left Ventricle The left ventricle is normal size. There is normal LV segmental wall motion. Moderate concentric left ventricular hypertrophy. Left ventricular systolic function is normal. The left ventricular ejection fraction is within the normal range. LVEF is 60-65%. Grade I - abnormal relaxation pattern. Right Ventricle The right ventricle is normal size. The right ventricular systolic function is normal. Atria The left atrium size is normal. The right atrium size is normal. Aortic Valve Moderate aortic valve sclerosis. Aortic valve prosthesis is noted No aortic regurgitation is present. Mild aortic stenosis. Mitral Valve The mitral valve is normal in structure. There is no mitral valve regurgitation noted. No evidence of mitral valve stenosis. Tricuspid Valve The tricuspid valve is normal in structure. There is no tricuspid valve regurgitation noted. Pulmonic Valve The pulmonary valve is normal in structure. There is no pulmonic valvular regurgitation. Great Vessels The aortic root is normal in size. IVC [place] [address] 2 D/M-MODE ECHOCARDIOGRAM Name: CHAD SCHMID ANGLE Room: [facility]#: [id number] Admission: 06/20/20 Attend Phys: Harvey Elizabeth, Discharge: Date of : 62 Date of Service: 06/20/20 1629 Report #: [id number] collapses >50% with inspiration. Pericardium There is no pericardial effusion. <Conclusion> The left ventricle is normal size. Moderate concentric left ventricular hypertrophy. Left ventricular systolic function is normal. The left ventricular ejection fraction is within the normal range. LVEF is 60-65%. Grade I - abnormal relaxation pattern. The right ventricle is normal size. The left atrium size is normal. Moderate aortic valve sclerosis. No aortic regurgitation is present. Mild aortic stenosis. The mitral valve is normal in structure. The tricuspid valve is normal in structure. IVC is normal in size and collapses >50% with inspiration. There is no pericardial effusion. There is normal LV segmental wall motion. Aortic valve prosthesis is noted <ELECTRONICALLY SIGNED> By: Robert Isidro MD, FACC 06/20/20 1629 1629 1629 Robert Isidro MD, FACC /INF
== END ==
LOC: M.CRD 13:55
PROVIDERS: ATTEND Internal Medicine Cardiovascular Disease
DX: I35.0 Nonrheumatic aortic (valve) stenosis (principal); Z95.2 Presence of prosthetic heart valve

== ENCOUNTER 2021-07-15 06:16 | Emergency (ER) | payer OTHER ==
[~2021-07-15] VITALS: Ht 175.3 cm; Wt 149.7 kg
[~2021-07-15 06:16] MED LIST changes: +JANTOVEN4 MG PO; +LIPITOR10 MG PO; +TOPROL XL50 MG PO; +WARFARIN SODIUM4 MG PO
[2021-07-15] MEDS ORDERED: COZAAR 25 MG TA25 M1 PO (06:42)
[2021-07-15 07:20] LABS: INFLUENZA A ANTIGEN Negative (Negative); INFLUENZA B ANTIGEN Negative (Negative)
[2021-07-15 07:21] LABS: CALCIUM 8.4 mg/dL (8.5-10.1); CREATININE 0.8 mg/dL (0.6-1.3); POTASSIUM 4.2 mmol/L (3.5-5.1)
[2021-07-15 07:22] LABS: ABSOLUTE EOSINOPHILS 0.2 thou/uL (0.0-0.7); ABSOLUTE LYMPHOCYTES 1.9 thou/uL (0.8-5.3); ABSOLUTE MONOCYTES 1.3 thou/uL (0.0-1.2); ABSOLUTE NEUTROPHILS 10.3 thou/uL (1.6-8.1); BASOPHILS 0.3 %; EOSINOPHILS 1.3 %; HEMATOCRIT 37.3 % (42.0-52.0); HEMOGLOBIN 12.1 gm/dL (14.0-18.0); INR 3.2; LYMPHOCYTES 13.7 %; MCHC 32.5 g/dL (28.0-37.0); MCV 86.1 fL (80.0-100.0); MONOCYTES 9.3 %; MPV 7.3 fl. (7.2-11.1); NUCLEATED RBCS 0 /100WBC; PLATELET COUNT* 249 thou/uL (150-400); POLYS 75.4 %; RBC 4.34 mil/uL (4.50-6.00); RDW-CV 17.3 % (10.5-14.5); WBC 13.7 thou/uL (4.0-11.0)
[2021-07-15 07:34] LABS: ALBUMIN 3.2 g/dL (3.4-5.0); MAGNESIUM 2.1 mg/dL (1.8-2.4); TOTAL BILIRUBIN 0.4 mg/dL (<0.1-1.0); TOTAL PROTEIN 7.2 g/dL (6.4-8.2)
[2021-07-15] MEDS ORDERED: PREDNISONE 20 M20 M1 PO (08:43)
[2021-07-15] MEDS ORDERED: HYDROCODON-ACE1 EAC7 PO (08:43)
[2021-07-15] MEDS ORDERED: VENTOLIN HFA 1818 GM INH (08:43)
[2021-07-15] MEDS ORDERED: FLEXERIL PO (08:43)
[2021-07-15 08:51] VITALS: BP 123/69
--- NOTE | 2021-07-15 11:18 | EKG ---
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: [place] : 1960 Requested By: Lola Stephenson Order Number: [id number] MD: Robert Isidro Measurements Intervals [place] Rate: 71 P: 28 UT: 136 QRS: 46 QRSD: 103 T: 85 QT: 376 QTc: 409 Interpretive Statements Sinus rhythm Consider left atrial enlargement Nonspecific T abnrm, anterolateral leads; consider ischemia Compared to ECG 12/17/2015 11:58:[address]-T alteration suggesting ischemia persist Electronically Signed On 07-15-2021 11:18:12 [employer] by Robert Isidro [email or web address] <ELECTRONICALLY SIGNED> By: Robert Isidro MD, [facility] 07/15/21 1118 0628 0628 Robert Isidro MD, [facility] /EPI
== END 2021-07-15 08:51 | disposition home or self-care (01) ==
LOC: M.ERS 06:16
PROVIDERS: Personal Emergency Response Attendant
DX: R06.2 Wheezing (principal); Z20.822 Contact with and (suspected) exposure to COVID-19; I10 Essential (primary) hypertension; J45.909 Unspecified asthma, uncomplicated; E66.9 Obesity, unspecified; Z79.899 Other long term (current) drug therapy; Z88.8 Allergy status to other drugs, medicaments and biological substances